=== PATIENT | female | born 1965 ===

== ENCOUNTER → 2024-01-23 | Day surgery (SDC) | payer OTHER ==
[~2024-01-23] MED LIST: BUPIVACAINE LIPOSOME/PF 266 MG/20 ML VIAL IJ ONE; CLONAZEPAM0.5 MG PO; DIBUCAINE 30 GM TUBE RECTAL ONE; HEMOSTATIC MATRIX 1 KIT KIT TOP ONE; MACRODANTIN100 M1 PO; PIPERACILLIN/TAZOBACTAM SODIUM 2.25 GM VIAL IV ONE; POVIDONE-IODINE 118 ML BOTT TOP ONE; URISTAT ULTRA99.5 MG PO
== END | disposition home or self-care (01) ==
LOC: ADM 01-17 11:00 → CIR.AMB 05:53
PROVIDERS: ATTEND Colon & Rectal Surgery
DX: K64.2 Third degree hemorrhoids (principal); K64.5 Perianal venous thrombosis; K60.0 Acute anal fissure; Z88.1 Allergy status to other antibiotic agents